=== PATIENT | male | born 2000 | race African-American/Black ===

== ENCOUNTER 2018-04-14 08:52 | Inpatient (IN) | payer OTHER, SELFPAY ==
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
[2018-04-14] MEDS ORDERED: ISOVUE-370 76%-LOCM 1 ML ONE (09:35)
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
[2018-04-14 09:55] LABS: #Eosinphils 0.1 thou/uL (0.0-0.7); #Lymphocytes 1.5 thou/uL (1.20-3.40); #Monocytes 0.5 thou/uL (0.11-0.59); #Neutrophils 9.4 thou/uL (1.40-6.50); %Basophils 0.1 % (0.0-1.0); %Eosinophils 0.5 % (0.0-10.0); %Lymphocytes 13.3 % (28.0-48.0); %Monocytes 4.4 % (0.0-4.0); %Neutrophils 81.6 % (31.0-61.0); Hemoglobin 14.9 g/dL (14.0-18.0); Mean Corpuscular HGB CONC 31.4 g/dL (32.0-36.0); Mean Corpuscular Hemoglobin 30.7 pg (25.0-35.0); Mean Corpuscular Volume 97.5 fL (78.0-98.0); Platelet Count 169 thou/uL (130-400); RBC Distribution Width 11.4 % (11.5-14.5); Red Blood Cell (RBC) Count 4.87 mill/uL (4.00-5.20); White Blood Cell (WBC) Count 11.5 thou/uL (4.8-10.8)
[2018-04-14 10:12] LABS: PTT 24.4 SEC (22.9-36.1); Prothrombin Time 13.4 SEC (12.0-14.7)
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
[2018-04-14] MEDS ORDERED: Ketorolac Tromethamine 30 MG/ML VIAL ONE (10:17)
[2018-04-14 10:23] LABS: ALT (SGPT) 60 U/L (8-55); AST (SGOT) 84 U/L (10-45); Albumin 4.2 g/dL (3.5-5.0); Alkaline Phosphatase 52 U/L (Less than 750); Anion Gap 15 mmol/L (10-20); BUN (Urea Nitrogen) 15 mg/dL (8.4-21.0); Bilirubin, Total 0.3 mg/dL (0.2-1.2); Calc. Creatinine Clearance 0 mL/min (70-130); Calcium 9.1 mg/dL (7.8-10.44); Carbon Dioxide 19 mmol/L (22-29); Chloride 108 mmol/L (98-107); Estimated GFR-MDRD 81; Globulin 3.2 g/dL (2.4-3.5); Glucose 101 mg/dL (70-105); Potassium 4.2 mmol/L (3.5-5.1); Protein, Total 7.4 g/dL (6.0-8.3); Sodium 138 mmol/L (136-145)
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
[2018-04-14] MEDS ORDERED: Ondansetron ODT 4 MG TAB PO PRN (12:16)
[2018-04-14] MEDS ORDERED: Ondansetron HCl/PF 4 MG/2 ML Vial IVP PRN (12:16)
[2018-04-14] MEDS ORDERED: Rib Fracture Protocol IV SCH (12:30)
[2018-04-14] MEDS ORDERED: Rib Fracture Protocol PO SCH (12:30)
[2018-04-14] MEDS: Ibuprofen 800 MG TAB PO SCH ×2 (12:49→18:19)
[2018-04-14] MEDS: Cyclobenzaprine 10 MG TAB PO PRN (12:50)
[2018-04-14] MEDS: Acetaminophen 500 MG TAB PO SCH ×2 (12:50→18:18)
[2018-04-14] MEDS: Sodium Chloride 0.9% 1,000 ML IV SCH ×2 (12:53→21:06)
[2018-04-14] MEDS ORDERED: HYDROcodone/Acetaminophen 10/325 mg Tablet PO SCH (13:00)
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
[2018-04-14 13:48] VITALS: BMI 32.1
[2018-04-14] MEDS: Gabapentin 300 MG CAP PO SCH ×2 (15:48→21:07)
[2018-04-14] MEDS ORDERED: Acetaminophen 500 MG TAB PO SCH (18:00)
[2018-04-14] MEDS ORDERED: Ibuprofen 800 MG TAB PO SCH (18:00)
[2018-04-14] MEDS: traMADol HCl 50 MG TAB PO SCH (18:17)
[2018-04-14] MEDS: Famotidine 20 MG TAB PO SCH (21:07)
[2018-04-15] MEDS: Acetaminophen 500 MG TAB PO SCH ×3 (00:19→12:12)
[2018-04-15] MEDS: Ibuprofen 800 MG TAB PO SCH ×3 (00:20→12:12)
[2018-04-15] MEDS: traMADol HCl 50 MG TAB PO SCH ×3 (00:20→12:11)
[2018-04-15 05:50] LABS: #Lymphocytes 1.7 thou/uL (1.20-3.40); #Monocytes 0.4 thou/uL (0.11-0.59); #Neutrophils 3.8 thou/uL (1.40-6.50); %Basophils 0.3 % (0.0-1.0); %Eosinophils 0.2 % (0.0-10.0); %Lymphocytes 28.8 % (28.0-48.0); %Monocytes 6.7 % (0.0-4.0); Hemoglobin 13.5 g/dL (14.0-18.0); Mean Corpuscular HGB CONC 31.3 g/dL (32.0-36.0); Mean Corpuscular Hemoglobin 30.7 pg (25.0-35.0); Mean Corpuscular Volume 98.2 fL (78.0-98.0); Mean Platelet Volume 9.6 fL (7.4-10.4); Platelet Count 172 thou/uL (130-400); RBC Distribution Width 11.5 % (11.5-14.5); Red Blood Cell (RBC) Count 4.39 mill/uL (4.00-5.20); White Blood Cell (WBC) Count 5.9 thou/uL (4.8-10.8)
[2018-04-15 06:00] LABS: Anion Gap 9 mmol/L (10-20); BUN (Urea Nitrogen) 9 mg/dL (8.4-21.0); Calc. Creatinine Clearance 145 mL/min (70-130); Calcium 9.3 mg/dL (7.8-10.44); Carbon Dioxide 26 mmol/L (22-29); Chloride 108 mmol/L (98-107); Estimated GFR-MDRD Greater than 90; Glucose 92 mg/dL (70-105); Potassium 4.1 mmol/L (3.5-5.1); Sodium 139 mmol/L (136-145)
[2018-04-15] MEDS: Cyclobenzaprine 10 MG TAB PO PRN ×2 (06:43→12:12)
[2018-04-15] MEDS: Sodium Chloride 0.9% 1,000 ML IV SCH (06:46)
[2018-04-15 08:02] VITALS: TEMP 98.1
[2018-04-15] MEDS ORDERED: Polyethylene Glycol 3350 17 GM Packet PO SCH (09:00)
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
[2018-04-15] MEDS: Gabapentin 300 MG CAP PO SCH (09:54)
[2018-04-15] MEDS: Famotidine 20 MG TAB PO SCH (10:08)
[2018-04-15 11:54] VITALS: BP 138/90
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
== END 2018-04-15 14:35 | disposition home or self-care (01) | DRG 184 ==
LOC: ERS 08:52 → SURG B 12:12
PROVIDERS: ADMIT Specialist; ATTEND Specialist
DX: S22.42XA Multiple fractures of ribs, left side, initial encounter for closed fracture (principal); S06.0X9A Concussion with loss of consciousness of unspecified duration, initial encounter; S27.329A Contusion of lung, unspecified, initial encounter; J93.83 Other pneumothorax; J94.2 Hemothorax; V89.9XXA Person injured in unspecified vehicle accident, initial encounter; R40.2413 Glasgow coma scale score 13-15, at hospital admission
CPT/HCPCS: 36415; 70450; 71045; 71046; 71260; 72125; 74177; 80048; 80053; 83605; 85025; 85610; 85730; 93005; 94640; G0390; J1885; J7620

== ENCOUNTER 2018-04-16 23:19 | Emergency (ER) | payer OTHER, SELFPAY ==
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
== END 2018-04-17 00:08 | disposition home or self-care (01) ==
LOC: ERS 23:19
DX: R07.81 Pleurodynia (principal)
CPT/HCPCS: 71045

== ENCOUNTER 2018-04-19 17:39 | Outpatient (CLI) | payer SELFPAY ==
--- NOTE | 2018-04-19 19:03 | ULT ---
LEFT LOWER EXTREMITY VENOUS DOPPLER ULTRASOUND 04/19/18 COMPARISON: None. HISTORY: Edema, swelling, assess for DVT. TECHNIQUE: Multiplanar white scale sonographic imaging of the venous structures of the left lower extremity obtai beni with color flow and spectral analysis. FINDINGS: Left common femoral vein, greater saphenous vein, profunda femoral vein, femoral vein, popliteal vein , and posterior tibial vein are patent. There is normal blood flow, augmentation, and compression wit hin the deep venous system on the left. No evidence for left lower extremity DVT. IMPRESSION: No evidence for deep venous thrombosis of the left lower extremity. POS: [facility]
== END 2018-04-19 17:40 | disposition home or self-care (01) ==
LOC: ULT 17:39
PROVIDERS: ATTEND Orthopaedic Surgery
DX: Z03.89 Encounter for observation for other suspected diseases and conditions ruled out (principal)

== ENCOUNTER 2018-05-01 10:34 | Outpatient (CLI) | payer OTHER ==
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
== END 2018-05-01 10:35 | disposition home or self-care (01) ==
LOC: RAD 10:34
PROVIDERS: ATTEND Physician Assistant
DX: S22.42XD Multiple fractures of ribs, left side, subsequent encounter for fracture with routine healing (principal); R91.8 Other nonspecific abnormal finding of lung field
CPT/HCPCS: 71046